=== PATIENT | male | born 1945 | race Caucasian/White ===

== ENCOUNTER → 2017-10-26 | Outpatient (CLI) | payer MEDICARE ==
[~2017-10-26] MED LIST: BISHYD10 PO; Coumadin PO; DIGO.25 PO; FURO40 PO; GLYB5 PO; INSN100I SC; INSR10I SC; LISI20 PO; LISINOPRIL PO; LOVA40 PO; TERAZOSIN PO; WARF10 PO; WARF5 PO; WARF7.5 PO
[2017-10-27 13:53] LABS: Stool Occult Bld Immuno 1 Negative (NEGATIVE)
== END | disposition home or self-care (01) ==
LOC: LAB EV 10:40
PROVIDERS: Physician Assistant
DX: Z12.11 Encounter for screening for malignant neoplasm of colon (principal)
CPT/HCPCS: G0328

== ENCOUNTER 2018-12-16 14:33 | Day surgery (SDC) | payer MEDICARE ==
[~2018-12-16] VITALS: Ht 180.3 cm; Wt 100.2 kg
[~2018-12-16 14:33] MED LIST changes: +Bisoprolol Fuma10 MG; +HYDCHL12.5; +METF500
[2018-12-16] MEDS ORDERED: POTCHL10ER PO (15:28)
== END 2018-12-16 17:35 | disposition home or self-care (01) ==
LOC: ORSCSDS 14:33
PROVIDERS: Orthopaedic Surgery
PROC: 01N50ZZ Release Median Nerve, Open Approach (ICD-10-PCS; principal; 2018-12-16 15:55)
DX: G56.02 Carpal tunnel syndrome, left upper limb (principal); E11.9 Type 2 diabetes mellitus without complications; I48.91 Unspecified atrial fibrillation; E78.5 Hyperlipidemia, unspecified; I50.9 Heart failure, unspecified; Z79.01 Long term (current) use of anticoagulants; Z79.84 Long term (current) use of oral hypoglycemic drugs; Z79.899 Other long term (current) drug therapy; F17.210 Nicotine dependence, cigarettes, uncomplicated
CPT/HCPCS: 82947; J0360; J0690; J2250; J3010; J7120

== ENCOUNTER 2019-10-08 19:26 | Observation (INO) | payer MEDICARE ==
[~2019-10-08] VITALS: Ht 180.3 cm; Wt 97.0 kg
[~2019-10-08 19:26] MED LIST changes: -HUMULIN N100 UNIT/2 SC; -INSDET100 SC; -LEVFLO500 PO
[2019-10-08] MEDS ORDERED: INSDET100 SC (20:41)
[2019-10-09 05:41] LABS: Hematocrit 35.3 % (37.0-53.0); Hemoglobin 11.8 g/dL (13.5-17.5); Mean Corpuscular HGB 31.1 pg (26.0-34.0); Mean Corpuscular HGB Conc 33.4 g/dL (31.5-36.5); Mean Corpuscular Volume 93 fL (80-100); Mean Platelet Volume 10.2 fL (9.1-12.4); Platelet Count 189 K/mm3 (150-400); RDW Coefficient Variation 13.1 % (11.7-14.2); RDW Standard Deviation 44.8 fL (35.1-46.3); Red Blood Cell Count 3.79 M/mm3 (4.30-5.90); White Blood Cell Count 5.55 K/mm3 (4.00-11.30)
[2019-10-09 06:01] LABS: Alanine Aminotransfer (ALT/SGP 9 U/L (12-78); Albumin, Blood 2.9 g/dL (3.4-5.0); Albumin/Globulin Ratio 0.6 (0.8-1.8); Alk Phos 47 U/L (50-136); Anion Gap 5 mmol/L (6-16); Aspartate Aminotrans (AST/SGOT 14 U/L (12-37); Bilirubin, Total 0.6 mg/dL (0.1-1.0); Blood Urea Nitrogen 13 mg/dL (8-24); Bun/Creatinine Ratio 15.6 (12.0-20.0); CO2, Blood 28 mmol/L (21-32); Calcium, Blood 8.6 mg/dL (8.5-10.1); Chloride, Blood 102 mmol/L (98-108); Creatinine, Blood 0.83 mg/dL (0.60-1.20); Globulin, Blood 4.7 g/dL (2.2-4.0); Glomerular Filtration Rate >60 (60-); Glucose, Blood 76 mg/dL (70-99); Potassium, Blood 3.5 mmol/L (3.5-5.5); Sodium, Blood 135 mmol/L (136-145); Total Protein, Blood 7.6 g/dL (6.4-8.2)
[2019-10-09 06:28] LABS: Digoxin (Lanoxin) 0.97 ug/mL (0.80-2.00)
[2019-10-09 08:47] LABS: International Normalized Ratio 1.88; Prothrombin Time Results 19.4 Sec (9.7-11.5)
[2019-10-09 11:53] LABS: Source, Urine Clean Catch
[2019-10-09 11:56] LABS: Bilirubin, Urine Neg (Neg); Blood, Urine 1+ (Neg); Glucose Qualitative, Urine Neg (Neg); Ketones, Urine Neg (Neg); Leukocyte Esterase, Urine Neg (Neg); Nitrite, Urine Neg (Neg); Protein, Urine Neg (Neg); Urobilinogen, Urine NORM (Normal)
[2019-10-09 12:01] LABS: Appearance, Urine Clear (Clear); Color, Urine Yellow (P-Yellow)
[2019-10-09 12:02] LABS: Bacteria Rare /hpf; Squamous Epithelial Cells Not Seen /hpf (Few); White Blood Cells, Urine 0-2 /hpf (0-5)
[2019-10-09 12:03] LABS: Adenovirus Not Detected (NOT DETECT); Bordetella pertussis Not Detected (NOT DETECT); Chlamydophila pneumoniae Not Detected (NOT DETECT); Coronavirus 229E Not Detected (NOT DETECT); Coronavirus HKU1 Not Detected (NOT DETECT); Coronavirus NL63 Not Detected (NOT DETECT); Coronavirus OC43 Not Detected (NOT DETECT); Human Metapneumovirus Not Detected (NOT DETECT); Human Rhinovirus/Enterovirus Not Detected (NOT DETECT); Influenza A/2009-H1 Not Detected (NOT DETECT); Influenza A/H1 Not Detected (NOT DETECT); Influenza A/H3 Not Detected (NOT DETECT); Influenza B Not Detected (NOT DETECT); Mycoplasma pneumoniae Not Detected (NOT DETECT); Parainfluenza Virus 1 Not Detected (NOT DETECT); Parainfluenza Virus 2 Not Detected (NOT DETECT); Parainfluenza Virus 3 Not Detected (NOT DETECT); Parainfluenza Virus 4 Not Detected (NOT DETECT); Respiratory Syncytial Virus Not Detected (NOT DETECT)
--- NOTE | 2019-10-09 17:33 | NUR ---
SUMMARY PT ADMITTED FROM THE ER FOR FEVER, PT IS ALERT AND ORIENTED, ABLE TO TRANSFER SELF FROM THE GURNEY TO THE BED, PT UP TO THE BATHROOM WITH STANDBY ASSIST, PT HAS BEEN AFEBRILE SINCE ADMIT, SPOUSE HAS BEEN IN TO VISIT SEVERAL TIMES, NO COMPLAINTS, WILL CONT TO MONITOR
--- NOTE | 2019-10-10 01:14 | NUR ---
LATE ENTRY FPR 10/10/19 0015: REPORT WAS RECIEVED FROM ROSALIND TILLEY RN AND ASSUMED CARE OF PATIENT. PATIENT IS A&OX4, RELUCTANT TO USE CALL [facility] FOR ASSIST OOB TO BATHROOM. PATIENT IS REPORIENTED TO CALL [facility], BED ALARM IS ON FOR SAFETY.
--- NOTE | 2019-10-10 05:16 | NUR ---
SHIFT SUMMARY: PATIENT IS A&OX4, UP TO THE BATHROOM TO VOID WITH STAND BY ASSIST OF ONE. PATIENT IS NOT COMPLIANT WITH CALLING FOR ASSIST TO THE BATHROOM, BED ALARM IS ON FOR SAFETY. NO COMPLAINTS OF PAIN OR DYSPNEA.
[2019-10-10 06:09] LABS: International Normalized Ratio 2.25
--- NOTE | 2019-10-10 17:26 | NUR ---
SUMMARY PT SITTING UP IN BED VISITING WITH HIS SPOUSE, PT HAS BEEN ABLE TO GET UP AND WALK IN THE HALLS WITH MIN ASSIST, PT HAS BEEN INDEPENDENT IN THE ROOM, VSS, NO ACUTE CHANGES, WILL CONT TO MONITOR
--- NOTE | 2019-10-11 04:31 | NUR ---
SHIFT SUMMARY PT HAS HAD PERIODS OF CONFUSION DURING SHIFT, AT SHIFT START PATIENT WAS FOUND IN HALLWAY AND STATED HE WAS "TRYING TO FIND MY WAY BACK TO BED FROM THE BATHROOM", ALSO WONDERED OUT TO RUEDA DURING THE NIGHT ASKING "HOW MUCH A NIGHT ARE THE ROOMS HERE?" AND ASKED WHO HAD BEEN SCREAMING AND ASKED STAFF TO LET THEM KNOW HE HAS A GUN. PT IS A&O DURING OTHER INTERACTIONS W/HIM, CONTINUES TO GET UP TO URINATE FREQUENTLY, DENIES PAIN, APPEARS TO BE SLEEPING AT THIS TIME, CALL LIGHT IN REACH, BED ALARM ON, WILL CONT TO MONITOR UNTIL REPORT GIVEN TO DAY RN.
[2019-10-11 06:39] LABS: BASOPHILS ABSOLUTE AUTO 0.07 K/mm3 (0.00-0.23); BASOPHILS PERCENT AUTO 2 % (0-2); EOSINOPHILS ABSOLUTE AUTO 0.25 K/mm3 (0.00-0.68); EOSINOPHILS PERCENT AUTO 6 % (0-6); Hematocrit 35.2 % (37.0-53.0); Hemoglobin 11.8 g/dL (13.5-17.5); IMMATURE GRAN ABSOLUTE AUTO 0.01 K/mm3 (0.00-0.10); IMMATURE GRAN PERCENT AUTO 0 % (0-1); LYMPHOCYTES ABSOLUTE AUTO 0.32 K/mm3 (0.84-5.20); LYMPHOCYTES PERCENT AUTO 8 % (21-46); MONOCYTES ABSOLUTE AUTO 0.59 K/mm3 (0.16-1.47); MONOCYTES PERCENT AUTO 14 % (4-13); Mean Corpuscular HGB 31.2 pg (26.0-34.0); Mean Corpuscular HGB Conc 33.5 g/dL (31.5-36.5); Mean Corpuscular Volume 93 fL (80-100); Mean Platelet Volume 10.5 fL (9.1-12.4); NEUTROPHILS ABSOLUTE AUTO 2.89 K/mm3 (1.96-9.15); NEUTROPHILS PERCENT AUTO 70 % (41-73); Platelet Count 191 K/mm3 (150-400); RDW Coefficient Variation 12.9 % (11.7-14.2); RDW Standard Deviation 43.8 fL (35.1-46.3); Red Blood Cell Count 3.78 M/mm3 (4.30-5.90); White Blood Cell Count 4.13 K/mm3 (4.00-11.30)
[2019-10-11 06:50] LABS: International Normalized Ratio 2.51; Prothrombin Time Results 25.5 Sec (9.7-11.5)
[2019-10-11 07:05] LABS: Alanine Aminotransfer (ALT/SGP 12 U/L (12-78); Albumin, Blood 2.6 g/dL (3.4-5.0); Albumin/Globulin Ratio 0.5 (0.8-1.8); Alk Phos 51 U/L (50-136); Anion Gap 5 mmol/L (6-16); Aspartate Aminotrans (AST/SGOT 16 U/L (12-37); Bilirubin, Total 0.6 mg/dL (0.1-1.0); Blood Urea Nitrogen 14 mg/dL (8-24); Bun/Creatinine Ratio 17.7 (12.0-20.0); CO2, Blood 30 mmol/L (21-32); Calcium, Blood 8.7 mg/dL (8.5-10.1); Chloride, Blood 103 mmol/L (98-108); Creatinine, Blood 0.79 mg/dL (0.60-1.20); Globulin, Blood 5.1 g/dL (2.2-4.0); Glomerular Filtration Rate >60 (60-); Glucose, Blood 106 mg/dL (70-99); Magnesium, Blood 2.3 mg/dL (1.6-2.4); Potassium, Blood 3.4 mmol/L (3.5-5.5); Sodium, Blood 138 mmol/L (136-145); Total Protein, Blood 7.7 g/dL (6.4-8.2)
[2019-10-11] MEDS ORDERED: HUMULIN N100 UNIT/2 SC (13:45)
--- NOTE | 2019-10-11 13:49 | NUR ---
REVIEW D'C W/PATIENT AND FAMILY. AWARE TO POULTRY HUSBANDRY WORKER RX AT [facility]. AWARE MAY CALL ABOUT LAB CULTURES IF ANY CONCERNS. AWARE NEEDS TO F/U. ANSWER ALL QUESTIONS. IN W/C TO POV
[2019-10-11] MEDS ORDERED: LEVFLO500 PO (13:50)
--- NOTE | 2019-10-11 14:21 | NUR ---
PATIENT AWARE TO ADJUST LONG ACTING INSULIN HE HAS DONE IN PAST. FOR EXAMPLE, IF NOT EATTING AND IF BLOOD SUGAR IS LOW TO TAKE LESS. IN W/C TO POV W/S.O. DRIVING
--- NOTE | 2019-10-11 15:17 | NUR ---
PER HE WANTS PATIENT TO BE ON SAME MEDS HE WAS ON AT HOME. HAD 3 PHONE CALLS FROM PHARMACY ABOUT MEDS. CALLED PATIENT , KAM, AND HE HAS ALL MEDS EXCEPT ANTIBIOTIC, LEVOQUIN.HE ALREADY HAS, INSULIN, LOVASTATIN AND HYTRIN. [facility] CALLED AND ADVISED JUST FILL LEVOQUIN
== END 2019-10-11 14:10 | disposition home or self-care (01) ==
LOC: ER 19:26 → ERHOLD 19:27 → MEDS 19:27 → ERHOLD 19:27 → MEDS 10-09 09:59
PROVIDERS: Internal Medicine Gastroenterology; Pharmacist; ADMIT Internal Medicine
DX: R50.9 Fever, unspecified (principal); C88.0 Waldenstrom macroglobulinemia; I11.0 Hypertensive heart disease with heart failure; E11.40 Type 2 diabetes mellitus with diabetic neuropathy, unspecified; I48.91 Unspecified atrial fibrillation; I50.9 Heart failure, unspecified; E78.5 Hyperlipidemia, unspecified; E78.00 Pure hypercholesterolemia, unspecified; N40.0 Benign prostatic hyperplasia without lower urinary tract symptoms; F17.210 Nicotine dependence, cigarettes, uncomplicated; Z79.01 Long term (current) use of anticoagulants; Z79.2 Long term (current) use of antibiotics; Z79.4 Long term (current) use of insulin; Z79.899 Other long term (current) drug therapy; Z98.1 Arthrodesis status
CPT/HCPCS: 0099U; 36415; 80053; 80162; 81001; 82947; 83605; 83735; 84145; 85025; 85027; 85610; 93306; 96361; 96365; 96366; 96367; 96372-59; 99285-25; A9270; A9270-GY; J0696; J1650; J1956; J7030

== ENCOUNTER → 2019-10-08 | Outpatient (CLI) | payer MEDICARE ==
[~2019-10-08] MED LIST changes: -Bisoprolol Fuma10 MG; +Bisoprolol Fuma10 MG PO; -DIGO.25 PO; +DIGOX250 MCG PO; +HUMULIN N100 UNIT/2 SC; -HYDCHL12.5; +HYDCHL12.5 PO; +INSDET100 SC; +LEVFLO500 PO; -METF500; +METF500 PO; +POTCHL10ER PO; +TERA5 PO; -TERAZOSIN PO
[2019-10-08 18:23] LABS: Hematocrit 38.1 % (37.0-53.0); Hemoglobin 12.7 g/dL (13.5-17.5); Mean Corpuscular HGB 31.1 pg (26.0-34.0); Mean Corpuscular HGB Conc 33.3 g/dL (31.5-36.5); Platelet Count 204 K/mm3 (150-400); RDW Coefficient Variation 13.3 % (11.7-14.2); RDW Standard Deviation 45.3 fL (35.1-46.3); Red Blood Cell Count 4.09 M/mm3 (4.30-5.90); White Blood Cell Count 6.99 K/mm3 (4.00-11.30)
[2019-10-08 18:36] LABS: Alanine Aminotransfer (ALT/SGP 13 U/L (12-78); Albumin, Blood 3.1 g/dL (3.4-5.0); Albumin/Globulin Ratio 0.6 (0.8-1.8); Alk Phos 55 U/L (40-126); Anion Gap 10 mmol/L (6-16); Aspartate Aminotrans (AST/SGOT 18 U/L (12-37); Bilirubin, Total 0.5 mg/dL (0.1-1.0); Blood Urea Nitrogen 16 mg/dL (8-24); CO2, Blood 27 mmol/L (21-32); Calcium, Blood 8.7 mg/dL (8.5-10.1); Chloride, Blood 97 mmol/L (98-108); Creatinine, Blood 1.07 mg/dL (0.60-1.20); Globulin, Blood 5.6 g/dL (2.2-4.0); Glomerular Filtration Rate >60 (60-); Glucose, Blood 181 mg/dL (70-99); Potassium, Blood 3.9 mmol/L (3.5-5.5); Sodium, Blood 134 mmol/L (136-145); Total Protein, Blood 8.7 g/dL (6.4-8.2)
[2019-10-08 18:42] LABS: Mean Corpuscular Volume 93 fL (80-100)
[2019-10-08 19:08] LABS: BAND PERCENT MAN 7 % (0-8); BASOPHILS PERCENT MAN 3 % (0-2); EOSINOPHILS PERCENT MAN 0 % (0-6); LYMPHOCYTES ABSOLUTE MAN 0.13 K/mm3 (0.84-5.20); LYMPHOCYTES PERCENT MAN 2 % (21-46); METAMYELOCYTE ABSOLUTE MAN 0.06 K/mm3 (0.00-0.00); METAMYELOCYTE PERCENT MAN 1 % (0-0); MONOCYTES ABSOLUTE MAN 0.34 K/mm3 (0.16-1.47); MONOCYTES PERCENT MAN 5 % (4-13); NEUTROPHILS ABSOLUTE MAN 6.22 K/mm3 (1.96-9.15); SEG NEUTROPHILS PERCENT MAN 82 % (41-73); TOTAL CELLS COUNTED 100
== END | disposition home or self-care (01) ==
LOC: LAB SHORT 18:18 → LAB EV 18:18
PROVIDERS: Physician Assistant
DX: R50.9 Fever, unspecified (principal)
CPT/HCPCS: 80053; 85025

== ENCOUNTER 2019-11-03 06:26 | Inpatient (IN) | payer MEDICARE ==
[~2019-11-03] VITALS: Ht 185.4 cm; Wt 88.0 kg
[~2019-11-03 06:26] MED LIST changes: +HUMULIN N100 UNIT/2 SC; +INSDET100 SC; +LEVFLO500 PO
[2019-11-03 06:53] LABS: BASOPHILS ABSOLUTE AUTO 0.03 K/mm3 (0.00-0.23); BASOPHILS PERCENT AUTO 0 % (0-2); EOSINOPHILS PERCENT AUTO 7 % (0-6); Hematocrit 40.3 % (37.0-53.0); Hemoglobin 13.1 g/dL (13.5-17.5); IMMATURE GRAN ABSOLUTE AUTO 0.03 K/mm3 (0.00-0.10); IMMATURE GRAN PERCENT AUTO 0 % (0-1); LYMPHOCYTES ABSOLUTE AUTO 0.17 K/mm3 (0.84-5.20); LYMPHOCYTES PERCENT AUTO 2 % (21-46); MONOCYTES ABSOLUTE AUTO 0.54 K/mm3 (0.16-1.47); MONOCYTES PERCENT AUTO 8 % (4-13); Mean Corpuscular HGB 30.3 pg (26.0-34.0); Mean Corpuscular HGB Conc 32.5 g/dL (31.5-36.5); Mean Corpuscular Volume 93 fL (80-100); Mean Platelet Volume 9.5 fL (9.1-12.4); NEUTROPHILS ABSOLUTE AUTO 5.94 K/mm3 (1.96-9.15); NEUTROPHILS PERCENT AUTO 82 % (41-73); Platelet Count 215 K/mm3 (150-400); RDW Coefficient Variation 14.2 % (11.7-14.2); RDW Standard Deviation 47.8 fL (35.1-46.3); Red Blood Cell Count 4.33 M/mm3 (4.30-5.90); White Blood Cell Count 7.21 K/mm3 (4.00-11.30)
[2019-11-03 07:08] LABS: Albumin/Globulin Ratio 0.7 (0.8-1.8); Bilirubin, Total 0.3 mg/dL (0.1-1.0); Bun/Creatinine Ratio 17.9 (12.0-20.0); Calcium, Blood 8.8 mg/dL (8.5-10.1); Creatinine, Blood 2.51 mg/dL (0.60-1.20); Globulin, Blood 4.1 g/dL (2.2-4.0); Potassium, Blood 4.1 mmol/L (3.5-5.5); Total Protein, Blood 7.1 g/dL (6.4-8.2)
[2019-11-03 07:11] LABS: Prothrombin Time Results 70.6 Sec (9.7-11.5)
[2019-11-03 07:14] LABS: International Normalized Ratio 7.39
[2019-11-03 13:48] LABS: Adenovirus F 40/41 Not Detected (NOT DETECT); Astrovirus Not Detected (NOT DETECT); Campylobacter Sp Not Detected (NOT DETECT); Cryptosporidium Not Detected (NOT DETECT); Cyclospora Cayetanensis Not Detected (NOT DETECT); E. Coli O157 Not Detected (NOT DETECT); Entamoeba Histolytica Not Detected (NOT DETECT); Enteroaggregative E. coli-EAEC Not Detected (NOT DETECT); Enteropathogenic E. coli-EPEC Not Detected (NOT DETECT); Enterotoxigenic E. coli-ETEC Not Detected (NOT DETECT); Giardia Lamblia Not Detected (NOT DETECT); Norovirus GI/GII Not Detected (NOT DETECT); Plesiomonas Shigelloides Not Detected (NOT DETECT); Rotavirus A Not Detected (NOT DETECT); Salmonella Sp Not Detected (NOT DETECT); Sapovirus Not Detected (NOT DETECT); Shiga Toxin-prod E. coli-STEC Not Detected (NOT DETECT); Shigella/Enteroin E. coli-EIEC Not Detected (NOT DETECT); Vibrio Cholerae Not Detected (NOT DETECT); Vibrio Sp Not Detected (NOT DETECT); Yersinia Enterocolitica Not Detected (NOT DETECT)
[2019-11-03] MEDS ORDERED: CEPH500 PO ×2 (17:15→17:19)
[2019-11-03] MEDS ORDERED: Sulfamethoxazo1 EAC4 PO (17:17)
[2019-11-04 05:29] LABS: BASOPHILS ABSOLUTE AUTO 0.02 K/mm3 (0.00-0.23); BASOPHILS PERCENT AUTO 1 % (0-2); EOSINOPHILS ABSOLUTE AUTO 0.31 K/mm3 (0.00-0.68); EOSINOPHILS PERCENT AUTO 8 % (0-6); Hematocrit 36.5 % (37.0-53.0); Hemoglobin 12.1 g/dL (13.5-17.5); IMMATURE GRAN ABSOLUTE AUTO 0.01 K/mm3 (0.00-0.10); IMMATURE GRAN PERCENT AUTO 0 % (0-1); LYMPHOCYTES ABSOLUTE AUTO 0.11 K/mm3 (0.84-5.20); LYMPHOCYTES PERCENT AUTO 3 % (21-46); MONOCYTES ABSOLUTE AUTO 0.48 K/mm3 (0.16-1.47); MONOCYTES PERCENT AUTO 13 % (4-13); Mean Corpuscular HGB 30.6 pg (26.0-34.0); Mean Corpuscular HGB Conc 33.2 g/dL (31.5-36.5); Mean Corpuscular Volume 92 fL (80-100); Mean Platelet Volume 10.1 fL (9.1-12.4); NEUTROPHILS ABSOLUTE AUTO 2.76 K/mm3 (1.96-9.15); NEUTROPHILS PERCENT AUTO 75 % (41-73); Platelet Count 218 K/mm3 (150-400); RDW Standard Deviation 47.3 fL (35.1-46.3); Red Blood Cell Count 3.95 M/mm3 (4.30-5.90); White Blood Cell Count 3.69 K/mm3 (4.00-11.30)
[2019-11-04 06:04] LABS: Albumin, Blood 2.5 g/dL (3.4-5.0); Albumin/Globulin Ratio 0.7 (0.8-1.8); Bilirubin, Total 0.4 mg/dL (0.1-1.0); Bun/Creatinine Ratio 24.6 (12.0-20.0); Calcium, Blood 7.9 mg/dL (8.5-10.1); Creatinine, Blood 1.26 mg/dL (0.60-1.20); Globulin, Blood 3.6 g/dL (2.2-4.0); Potassium, Blood 4.1 mmol/L (3.5-5.5); Total Protein, Blood 6.1 g/dL (6.4-8.2)
[2019-11-04 11:08] LABS: Prothrombin Time Results >90.0 Sec (9.7-11.5)
[2019-11-04 11:11] LABS: International Normalized Ratio No Calc
[2019-11-05 05:14] LABS: BASOPHILS ABSOLUTE AUTO 0.01 K/mm3 (0.00-0.23); BASOPHILS PERCENT AUTO 0 % (0-2); EOSINOPHILS ABSOLUTE AUTO 0.33 K/mm3 (0.00-0.68); EOSINOPHILS PERCENT AUTO 8 % (0-6); Hematocrit 37.9 % (37.0-53.0); Hemoglobin 12.6 g/dL (13.5-17.5); IMMATURE GRAN ABSOLUTE AUTO 0.01 K/mm3 (0.00-0.10); IMMATURE GRAN PERCENT AUTO 0 % (0-1); LYMPHOCYTES ABSOLUTE AUTO 0.16 K/mm3 (0.84-5.20); LYMPHOCYTES PERCENT AUTO 4 % (21-46); MONOCYTES ABSOLUTE AUTO 0.49 K/mm3 (0.16-1.47); MONOCYTES PERCENT AUTO 12 % (4-13); Mean Corpuscular HGB 30.4 pg (26.0-34.0); Mean Corpuscular HGB Conc 33.2 g/dL (31.5-36.5); Mean Corpuscular Volume 92 fL (80-100); Mean Platelet Volume 9.4 fL (9.1-12.4); NEUTROPHILS ABSOLUTE AUTO 3.06 K/mm3 (1.96-9.15); NEUTROPHILS PERCENT AUTO 76 % (41-73); Platelet Count 218 K/mm3 (150-400); RDW Coefficient Variation 13.9 % (11.7-14.2); RDW Standard Deviation 46.6 fL (35.1-46.3); Red Blood Cell Count 4.14 M/mm3 (4.30-5.90); White Blood Cell Count 4.06 K/mm3 (4.00-11.30)
[2019-11-05 05:53] LABS: Anion Gap 8 mmol/L (6-16); Blood Urea Nitrogen 15 mg/dL (8-24); Bun/Creatinine Ratio 18.2 (12.0-20.0); CO2, Blood 24 mmol/L (21-32); Calcium, Blood 8.3 mg/dL (8.5-10.1); Chloride, Blood 110 mmol/L (98-108); Creatinine, Blood 0.82 mg/dL (0.60-1.20); Glomerular Filtration Rate >60 (60-); Potassium, Blood 3.4 mmol/L (3.5-5.5); Sodium, Blood 142 mmol/L (136-145)
[2019-11-05 05:55] LABS: Glucose, Blood 41 mg/dL (70-99)
[2019-11-05 10:29] LABS: International Normalized Ratio 1.37; Prothrombin Time Results 14.4 Sec (9.7-11.5)
[2019-11-05] MEDS ORDERED: Vsl#3 Capsule1 EACH PO (13:22)
[2019-11-05] MEDS ORDERED: Lomotil Tablet1 EACH PO (13:22)
[2019-11-05] MEDS ORDERED: PRED20 PO (13:23)
== END 2019-11-05 15:18 | disposition home or self-care (01) | DRG 683 ==
LOC: ER 06:26 → MEDS 09:09 → ENPENDDIS 11-05 13:11 → MEDS 11-05 15:18
PROVIDERS: Emergency Medicine; ADMIT Family Medicine
DX: N17.9 Acute kidney failure, unspecified (principal); C83.00 Small cell B-cell lymphoma, unspecified site; L03.311 Cellulitis of abdominal wall; E86.0 Dehydration; I95.9 Hypotension, unspecified; R19.7 Diarrhea, unspecified; Z92.21 Personal history of antineoplastic chemotherapy; E11.42 Type 2 diabetes mellitus with diabetic polyneuropathy; N40.0 Benign prostatic hyperplasia without lower urinary tract symptoms; E78.5 Hyperlipidemia, unspecified; I50.9 Heart failure, unspecified; I11.0 Hypertensive heart disease with heart failure; Z87.891 Personal history of nicotine dependence; Z79.4 Long term (current) use of insulin; Z79.01 Long term (current) use of anticoagulants
CPT/HCPCS: 0097U; 36415; 80048; 80053; 82947; 83690; 85025; 85610; 85730; 93005; 93010; 96360; 96361; 99285-25; A9270; J1815; J7030; J7512

== ENCOUNTER 2020-07-12 08:43 | Observation (INO) | payer MEDICARE ==
[~2020-07-12] VITALS: Ht 185.4 cm; Wt 84.5 kg
[~2020-07-12 08:43] MED LIST changes: +ACET325 PO; +CEPH500 PO; +FUROSEMIDE20 MG PO; +GABA100 PO; +GABAPENTIN CAP 100; +HUMULIN N100 UNIT/1; +HYDCHL25 PO; +Lomotil Tablet1 EACH PO; +PRED20 PO; +Sulfamethoxazo1 EAC4 PO; +Vsl#3 Capsule1 EACH PO; +ZESTRIL40 M1 PO
[2020-07-12] MEDS ORDERED: BACIGUENT3.5 GM LEFTEYE (09:57)
[2020-07-12] MEDS ORDERED: Cyclogyl 1% Opth2 ML LEFTEYE (09:59)
[2020-07-12] MEDS ORDERED: OCUFLOX LEFTEYE (10:00)
[2020-07-12] MEDS ORDERED: PRED FORTE5 ML LEFTEYE (10:00)
[2020-07-12 10:22] LABS: Hematocrit 37.6 % (37.0-53.0); Hemoglobin 11.9 g/dL (13.5-17.5); Mean Corpuscular HGB 30.2 pg (26.0-34.0); Mean Corpuscular HGB Conc 31.6 g/dL (31.5-36.5); Mean Corpuscular Volume 95 fL (80-100); Platelet Count 157 K/mm3 (150-400); RDW Coefficient Variation 15.5 % (11.7-14.2); RDW Standard Deviation 54.6 fL (35.1-46.3); Red Blood Cell Count 3.94 M/mm3 (4.30-5.90); White Blood Cell Count 10.46 K/mm3 (4.00-11.30)
[2020-07-12 10:33] LABS: International Normalized Ratio 1.76; Prothrombin Time Results 18.2 Sec (9.7-11.5)
[2020-07-12 10:45] LABS: Alanine Aminotransfer (ALT/SGP 38 U/L (12-78); Albumin, Blood 3.5 g/dL (3.4-5.0); Albumin/Globulin Ratio 1.1 (0.8-1.8); Alk Phos 67 U/L (50-136); Anion Gap 6 mmol/L (6-16); Aspartate Aminotrans (AST/SGOT 82 U/L (12-37); Bilirubin, Total 1.4 mg/dL (0.1-1.0); Blood Urea Nitrogen 26 mg/dL (8-24); Bun/Creatinine Ratio 19.5 (12.0-20.0); CO2, Blood 30 mmol/L (21-32); Calcium, Blood 9.4 mg/dL (8.5-10.1); Chloride, Blood 106 mmol/L (98-108); Creatinine, Blood 1.33 mg/dL (0.60-1.20); Ethanol (Alcohol), Blood, Med <3 mg/dL; Globulin, Blood 3.2 g/dL (2.2-4.0); Glomerular Filtration Rate 56 (60-); Glucose, Blood 90 mg/dL (70-99); Magnesium, Blood 2.3 mg/dL (1.6-2.4); Potassium, Blood 3.5 mmol/L (3.5-5.5); Sodium, Blood 142 mmol/L (136-145); Total Protein, Blood 6.7 g/dL (6.4-8.2)
[2020-07-12 11:01] LABS: Digoxin (Lanoxin) 1.97 ug/mL (0.80-2.00)
[2020-07-12 11:29] LABS: BAND PERCENT MAN 18 % (0-8); BASOPHILS PERCENT MAN 0 % (0-2); EOSINOPHILS PERCENT MAN 2 % (0-6); LYMPHOCYTES PERCENT MAN 2 % (21-46); METAMYELOCYTE ABSOLUTE MAN 0.41 K/mm3 (0.00-0.00); METAMYELOCYTE PERCENT MAN 4 % (0-0); MONOCYTES ABSOLUTE MAN 1.25 K/mm3 (0.16-1.47); MONOCYTES PERCENT MAN 12 % (4-13); NEUTROPHILS ABSOLUTE MAN 8.36 K/mm3 (1.96-9.15); SEG NEUTROPHILS PERCENT MAN 62 % (41-73); TOTAL CELLS COUNTED 100
[2020-07-12 11:32] LABS: Source, Urine Catheter
[2020-07-12 11:44] LABS: Bilirubin, Urine Neg (Neg); Blood, Urine 3+ (Neg); Glucose Qualitative, Urine Neg (Neg); Ketones, Urine Neg (Neg); Leukocyte Esterase, Urine 1+ (Neg); Nitrite, Urine Neg (Neg); Protein, Urine 3+ (Neg); Urobilinogen, Urine 1+ (Normal)
[2020-07-12 11:55] LABS: Appearance, Urine Clear (Clear); Color, Urine Yellow (P-Yellow)
[2020-07-12 11:56] LABS: Amorphous Mod (0-Heavy); Bacteria Rare /hpf; Red Blood Cells, Urine 0-2 /hpf (0-2); Squamous Epithelial Cells Rare /hpf (Few)
[2020-07-12] MEDS ORDERED: HUMULIN N100 UNIT/6 SC (12:22)
[2020-07-12] MEDS ORDERED: LOVASTATIN40 MG PO (12:23)
[2020-07-12] MEDS ORDERED: KLOR-CON 1010 MEQ PO (12:23)
[2020-07-12] MEDS ORDERED: HUMULIN R100 UNIT/2 SC (12:31)
[2020-07-12 13:58] LABS: Influenza A, PCR Negative (NEGATIVE); Influenza B, PCR Negative (NEGATIVE); Resp Syncytial Virus, PCR Negative (NEGATIVE); SARS-Cov-2 (COVID-19) PCR, MMC Negative (NEGATIVE)
[2020-07-12] MEDS ORDERED: GABA300 PO (17:53)
--- NOTE | 2020-07-12 18:20 | NUR ---
1530 RECEIVED PT TO RM 346 VIA GURNEY FROM ER. PT ADMITTED FOR INCREASED WEAKNESS AND CONFUSION. RECEIVED REPORT FROM [facility], PT HAVING RECENT FALL 1 WEEK AGO AND OBTAINED EYE INJURY, FOR WHICH HE HAD SX ON UP AT [facility]. PT NOW HAS PATCH ON L EYE RECEIVING MULTIPLE EYE DROPS THRU OUT THE DAY. PT ALSO ADMITTED FOR ENCEPHALOPATHY AND REBECCA. PT SLEEPY EALIER IN DAY, BUT WOKE WITH INCREASED CONFUSION AND AGITATION. PT SOMEWHAT AGITATED WHEN COMING TO . DID NOT LIKE TO BE REPOSITIONED OR CHECKED FOR INCONTINENCE. PT HAS BEEN RESTING QUIETLY SINCE BEING SETTLED. WAS ABLE TO WAKE AND TOOK PM MEDS. CAME IN TONIGHT TO ASSIST WITH EYE DROPS AND COMPLETE MEDICATION LIST. IVF'S INFUSING PER EMAR. IV ROCEPHIN GIVEN PER EMAR, [facility] HENDRICKS WAS NOT ABLE TO OBTAIN WHILE IN ER. PT WITH HX OF IDDM, A-FIB ON COUMADIN, BPH, HTN, CHF, AND HLD. PT LIVES AT HOME WITH . HAS BEEN VERY PLEASANT AND HELPFUL. PT MEDICATED FOR C/O PAIN TO BACK. BED ALARM ON FOR SAFETY. CALL LT IN REACH.
--- NOTE | 2020-07-13 04:19 | NUR ---
SHIFT SUMMARY ALERT YET CONFUSED. FORGETFUL. RE-DIRECTABLE. ABLE TO MAKE NEEDS KNOWN. COOPERATIVE. ANSWERS QUESTIONS TO BEST OF HIS OWN KNOWLEDGE. NO C/O PAIN/DISCOMFORT, DID HOWEVER STATE SUFFERS FROM ARTHRITIS. INCONTINENT AT TIMES; ATTENDS IN PLACE WITH ROUTINE CHECKS. CONTINUES TO INFUSE NS @ 100 ML/HR WITHOUT COMPLICATIONS. TELE RUNNING AFIB /c BBB IN 70'S PER PCU VIBRATORY PILE DRIVER. NO ACUTE CHANGES NOTED AT THIS TIME. BED REMAINS IN LOWEST POSITION; ALARM ON. CALL LIGHT WITHIN REACH. WCTM. REPORT TO ONCOMING RN.
[2020-07-13 05:11] LABS: Hematocrit 32.8 % (37.0-53.0); Hemoglobin 10.4 g/dL (13.5-17.5); Mean Corpuscular HGB 30.3 pg (26.0-34.0); Mean Corpuscular HGB Conc 31.7 g/dL (31.5-36.5); Mean Corpuscular Volume 96 fL (80-100); Mean Platelet Volume 10.3 fL (9.1-12.4); Platelet Count 150 K/mm3 (150-400); RDW Coefficient Variation 15.6 % (11.7-14.2); RDW Standard Deviation 54.1 fL (35.1-46.3); Red Blood Cell Count 3.43 M/mm3 (4.30-5.90); White Blood Cell Count 10.13 K/mm3 (4.00-11.30)
[2020-07-13 05:24] LABS: International Normalized Ratio 2.52; Prothrombin Time Results 25.6 Sec (9.7-11.5)
[2020-07-13 05:33] LABS: Anion Gap 5 mmol/L (6-16); Blood Urea Nitrogen 25 mg/dL (8-24); Bun/Creatinine Ratio 21.9 (12.0-20.0); CO2, Blood 28 mmol/L (21-32); Calcium, Blood 8.8 mg/dL (8.5-10.1); Chloride, Blood 106 mmol/L (98-108); Creatinine, Blood 1.14 mg/dL (0.60-1.20); Glomerular Filtration Rate >60 (60-); Glucose, Blood 95 mg/dL (70-99); Potassium, Blood 3.9 mmol/L (3.5-5.5); Sodium, Blood 139 mmol/L (136-145)
[2020-07-13 05:54] LABS: BAND PERCENT MAN 19 % (0-8); BASOPHILS PERCENT MAN 1 % (0-2); EOSINOPHILS PERCENT MAN 0 % (0-6); LYMPHOCYTES PERCENT MAN 2 % (21-46); METAMYELOCYTE PERCENT MAN 3 % (0-0); MONOCYTES ABSOLUTE MAN 1.21 K/mm3 (0.16-1.47); MONOCYTES PERCENT MAN 12 % (4-13); SEG NEUTROPHILS PERCENT MAN 63 % (41-73); TOTAL CELLS COUNTED 100
--- NOTE | 2020-07-13 13:09 | NUR ---
Patient is lying in bed and alert. Patient is confused at times and gets his words mixed up but overall he can commuicate what is important to him if given enough time and coaching. Patient has a strong Taoism patricia, desire to live and need to have his , Emily, present. Patient is amenable to prayer so I gladly provide prayer. Patient's response to the prayer is, "That was perfect." Patient feels alone and afraid (insecure about his surroundings). I normalize patient's experience, reinforce helpful attitudes and provide pastoral personnel counselor and prayer. Patient responds well and shows signs of reduced anxiety and increased peace. I will continue to remain available to patient and family.
--- NOTE | 2020-07-13 19:29 | NUR ---
SHIFT SUMMARY PT AWAKE ALL DAY TODAY, AGITATED AND CONFUSED. PT DOES NOT KNOW WHERE HE IS OR WHY, AND IS WANTING TO GO HOME. DR NELSON IN TO SEE PT THIS AM. POSSIBLE D/C TOMORROW. DR NELSON TO CALL PT'S . IN TO VISIT THIS AFTERNOON. PT CALMED DOWN AND TOOK A SHORT NAP. PT BECOME RESTLESS AGAIN AFTER LEFT, NOT REMEMBERING THAT SHE HAD COME IN. PT PULLED OUT IV AND PULLED OFF TELE LEADS. PT REMAINS INCONTINENT OF URINE; VOIDS HEAVILY. PT ABLE TO EAT AND DRINK WELL. PT ALSO REMOVED L EYE PATCH. AWARE. BED ALARM ON FOR SAFETY. CALL LT IN REACH.
--- NOTE | 2020-07-13 21:20 | NUR ---
PATIENT PULLING TELEMETRY OFF AND GOWN X THREE. PATIENT AXO X ONE AND TRYING TO GET OUT OF BED. BED ALARM ACTIVATED.
--- NOTE | 2020-07-14 01:46 | NUR ---
PATIENT HAVING AUDITORY HALLUCINATIONS AT THIS TIME.
--- NOTE | 2020-07-14 03:07 | NUR ---
SHIFT SUMMARY PATIENT AGITATED AND CONFUSED. AXO TO SELF AND BEDREST. PULLED IV ON DAY SHIFT AND PULLED TELEMETRY, GOWN AND EYE PATCH OFF MULTIPLE TIMES. TOOK MEDICATION CRUSHED IN APPLE SAUCE. CBG 206. 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 OXYCODONE 5 MG FOR ARTHRITIS AND TO HELP SLEEP WITH REDUCED PAIN. EYES DROPS X THREE GIVEN PER EMAR. PATIENT RESTLESS T/O SHIFT AND TRIES BED EXITS ATTEMPTS REPORTING WANTS TO LEAVE. AUDITORY HALLUCINATIONS MID SHIFT. CALL LIGHT IN REACH. BED IN LOWEST POSITION AND ALARM ACTIVATED. WILL CONTINUE TO MONITOR UNTIL DAY SHIFT NURSE ASSUMES CARE.
[2020-07-14 05:19] LABS: International Normalized Ratio 3.74; Prothrombin Time Results 37.1 Sec (9.7-11.5)
--- NOTE | 2020-07-14 17:56 | NUR ---
PT AOX1 AND VERY CONFUSED. PT HAS BEEN IN BED ALL DAY AND IS A TWO PERSON TURN TO CHANGE. PT IS INCONTINENT OF URINE, BUT WAS ABLE TO USE COMODE TODAY WITH PHYSICAL THERAPY AND HAD A BM. PT IS COOPERATIVE, BUT DOES NOT ALWAYS WANT ASSITANCE OR WOULD LIKE TO LEAVE AND DANGLES LEGS OUT OF BED. BED IS IN LOWEST POSITION AND ALARM IN PLACE.
--- NOTE | 2020-07-14 21:25 | NUR ---
INCREASE CONFUSION. PATIENT BELIEVES HE IS AT A RESTAURANT AND WANTS TO TALK TO POWER SUPPLY ENGINEER. PATIET NOT ABLE TO REORIENT AT THIS TIME. CALL LIGHT IN REACH AND BED ALARM ON.
--- NOTE | 2020-07-15 01:17 | NUR ---
HAVING INCREASED CONFUSION. PULLED GOWN, COVERS, AND TELEMETRY LEADS OFF AFTER HE WAS JUST CHANGED. HANGING LEGS OFF SIDE OF BED AND ACTIVATED ALARM. PATIENT BACK INTO BED. TELEMETRY LEADS REATTACHED AND PATIENT REPOSITIONED AND COVERS BACK ON. WILL CONTINUE TO MONITOR.
--- NOTE | 2020-07-15 01:36 | NUR ---
PATIENT PULLED GOWN, TELE LEADS, AND COVERS OFF AGAIN. TALKING ABOUT WORKING ON CAR ENGINES TOMORROW. PATIENT NOT ABLE TO REORIENT AND FOLLOW DIRECTIONS AT THIS TIME.
--- NOTE | 2020-07-15 03:18 | NUR ---
SHIFT SUMMARY PATIENT HAD INCREASED CONFUSION T/O SHIFT. PULLED TELEMETRY LEADS, GOWNS, AND BLANKETS OFF X FOUR. UNABLE TO REORIENT AND FOLLOW DIRECTIONS AT THIS TIME. AXO TO SELF AND BEDREST. OXYCODONE 5 MG GIVEN FOR ARTHRITIS PAIN. DENIES SOB AND N/V. AFEBRILE. SCHEDULE EYE DROPS X THREE GIVEN PER EMAR. PIV REMAINS INTACT. DIE FORGER REPORTS A-FIB W/PVC @ 71. TAKES MEDICATION CRUSHED IN APPLE SAUCE. DOES NOT USE CALL LIGHT. BED IN LOWEST POSITION AND ALARM ACTIVATED. WILL CONTINUE TO MONITOR UNTIL DAY SHIFT NURSE ASSUMES CARE.
[2020-07-15 05:28] LABS: International Normalized Ratio 2.97; Prothrombin Time Results 29.9 Sec (9.7-11.5)
--- NOTE | 2020-07-15 16:59 | NUR ---
HE LAYED IN BED UNTIL HIS WAS HERE AND OT CAME BY. HE REFUSED TO GET OOB OR TO EAT UNTIL HIS WAS HERE. THE PLAN IS TO SEND HIM HOME TOMORROW WITH HIS . SHE HAS CAREGIVERS FOR HIM AND MEDICAL EQUIPMENT. HE IS SITTING UP IN THE CHAIR AWAITING DINNER. HIS EXTREMITIES ARE VERY STIFF BUT HE WAS ABLE TO STAND AND SIT A FEW TIMES FOR THE OT. TELE AFIB, RATE 70'S. SMALL COUMADIN DOSE TONIGHT FOR INR 2.9.
[2020-07-16 05:19] LABS: International Normalized Ratio 2.85; Prothrombin Time Results 28.7 Sec (9.7-11.5)
--- NOTE | 2020-07-16 06:49 | NUR ---
SHIFT SUMMARY PT IS 75 Y/O MALE, ADMITTED FOR ENCEPHALOPATHY. PT IS A&O X SELF ONLY, VERY PARANOID WITH STAFF AND DIFFICULT TO REDIRECT OR REORIENT. PT IS 2P MAX OUT OF BED, INCONTINENT. NO C/O PAIN, NAUSEA OR SOB. BP WAS ELEVATED, VITAL SIGNS OTHERWISE STABLE. NO OTHER ACUTE CHANGES IN PT CONDITION NOTED. WILL CONTINUE TO MONITOR AND TREAT PER EMAR UNTIL HAND OFF TO DAY SHIFT RN.
--- NOTE | 2020-07-16 15:44 | NUR ---
ROUNDED BEFORE BREAKFAST. HIGHER NORVASC DOSE GIVEN WITH AM MEDS. BP CHECKED A COUPLE HRS LATER AND IT WAS STILL HIGH BUT REASONABLE. SEE VS CHARTING. HE HAS BEEN IMPATIENT TO GO HOME. HIS IS WITH HIM CURRENTLY. DR. MARTIN CALLED HER AT HOME THIS MORNING AND SHE UNDERSTYANDS THAT HE WANTS THE BP CONTROLLED BETTER BEFORE DC. HE REMAINS VERY CONFUSED. HIS MOBILITY IS MUCH IMPROVED TODAY THOUGH.
--- NOTE | 2020-07-16 18:02 | NUR ---
HE IS BACK IN BED AFTER BEING UP IN THE CHAIR A LOT TODAY. HE ALSO AMBULATED IN THE ROOM ONCE AND WALKED IN THE RUEDA WITH THERAPY. BP IMPROVING.
--- NOTE | 2020-07-16 19:10 | NUR ---
ASSUMED CARE RECEIVED REPORT FROM ELADIO MAGANA. ASSUMED CARE OF PT. RESTING COMFORTABLY AT THIS TIME, NO S/S ACUTE DISTRESS NOTED, RESPS E/U. DENIES NEEDS. CALL LIGHT, POSSESSIONS IN REACH, BED IN LOW POSITION WITH ALARMS ON. WCTM.
--- NOTE | 2020-07-17 02:08 | NUR ---
SPOKE TO DR. DANG REGARDING PT'S INCREASED AGITATION. ORDERS RECEIVED. CONTINUE TO MONITOR.
[2020-07-17 05:03] LABS: International Normalized Ratio 2.11; Prothrombin Time Results 21.6 Sec (9.7-11.5)
[2020-07-17 05:24] LABS: Anion Gap 7 mmol/L (6-16); Blood Urea Nitrogen 14 mg/dL (8-24); Bun/Creatinine Ratio 15.8 (12.0-20.0); CO2, Blood 29 mmol/L (21-32); Chloride, Blood 102 mmol/L (98-108); Creatinine, Blood 0.89 mg/dL (0.60-1.20); Digoxin (Lanoxin) 1.12 ug/mL (0.80-2.00); Glomerular Filtration Rate >60 (60-); Glucose, Blood 103 mg/dL (70-99); Magnesium, Blood 2.4 mg/dL (1.6-2.4); Phosphorus, Blood 3.3 mg/dL (2.5-4.9); Potassium, Blood 3.4 mmol/L (3.5-5.5); Sodium, Blood 138 mmol/L (136-145)
[2020-07-17 06:17] LABS: Hematocrit 35.8 % (37.0-53.0); Hemoglobin 11.9 g/dL (13.5-17.5); Mean Corpuscular HGB 30.6 pg (26.0-34.0); Mean Corpuscular HGB Conc 33.2 g/dL (31.5-36.5); Mean Corpuscular Volume 92 fL (80-100); Mean Platelet Volume 11.3 fL (9.1-12.4); Platelet Count 221 K/mm3 (150-400); RDW Coefficient Variation 14.6 % (11.7-14.2); RDW Standard Deviation 49.2 fL (35.1-46.3); Red Blood Cell Count 3.89 M/mm3 (4.30-5.90); White Blood Cell Count 5.58 K/mm3 (4.00-11.30)
--- NOTE | 2020-07-17 06:53 | NUR ---
SHIFT SUMMARY PT AWAKE T/O MUCH OF THE NIGHT, INCREASINGLY CONFUSED, CALLING OUT FOR FAMILY MEMBERS AND ASKING TO BE TAKEN HOME BY HIS . PROVIDED REASSURANCE AND VERBAL RE-DIRECTION. SEE EMAR FOR DETAILS. VS REVIEWED, BP'S ELEVATED, MEDICATED PER EMAR, BP'S STABLE. COOPERATIVE WITH CARES. ASLEEP AT THIS TIME. CALL LIGHT, POSSESSIONS IN REACH, BED IN LOW POSITION WITH ALARMS ON. REPORT GIVEN TO DRAKE Jones RN.
[2020-07-17 06:55] LABS: BAND PERCENT MAN 25 % (0-8); BASOPHILS ABSOLUTE MAN 0.05 K/mm3 (0.00-0.23); BASOPHILS PERCENT MAN 1 % (0-2); EOSINOPHILS ABSOLUTE MAN 0.16 K/mm3 (0.00-0.68); EOSINOPHILS PERCENT MAN 3 % (0-6); LYMPHOCYTES ABSOLUTE MAN 0.22 K/mm3 (0.84-5.20); LYMPHOCYTES PERCENT MAN 4 % (21-46); METAMYELOCYTE ABSOLUTE MAN 0.22 K/mm3 (0.00-0.00); METAMYELOCYTE PERCENT MAN 4 % (0-0); MONOCYTES ABSOLUTE MAN 0.94 K/mm3 (0.16-1.47); MONOCYTES PERCENT MAN 17 % (4-13); NEUTROPHILS ABSOLUTE MAN 3.96 K/mm3 (1.96-9.15); SEG NEUTROPHILS PERCENT MAN 46 % (41-73); TOTAL CELLS COUNTED 100
--- NOTE | 2020-07-17 07:41 | NUR ---
PATIENT KICKS MILL RECORDER WHEN STAFF TALKING TO PATIENT. PER OK FOR RESTRAINTS IF NEEDED. WILL REEVAL.
[2020-07-17] MEDS ORDERED: AMLO10 PO (11:14)
[2020-07-17] MEDS ORDERED: CLON.1 PO (11:15)
[2020-07-17] MEDS ORDERED: HYDCHL25 PO (11:16)
[2020-07-17] MEDS ORDERED: MELATONIN 5 MG1 EACH PO (11:17)
--- NOTE | 2020-07-17 14:30 | NUR ---
REVIEW D'C WITH . PER HE TALKED TO VIA PHONE AND SHE WAS GOOD WITH TAKING HIM HOME. STS SHE IS USED TO DRESSING PATIENT AND HAS A HOSPITAL BED AND W/C FOR PATIENT. REVIEW MEDS WITH , ADVISED HOME HEALTH AND [facility] WILL CALL TO SET UP APPOINTMENT. AND SON IN ROOM. SON DOES NOT ASSIST WITH DRESSING OR GETTING PATIENT IN W/C. SON, AND REGIONAL PRODUCTION MANAGER WHEEL PATIENT OUT TO CAR. WHEN REGIONAL PRODUCTION MANAGER COMES BACK STS AND SON DID NOT HELP TO GET PATIENT INTO CAR. ATTEMPT TO CALL TO SEE IF EVERYTHING OK, LEFT MESSAGE ON ANSWERING MACHINE TO REMIND HER SHE HAD MEDS AT [facility] TO MACHINE SET UP.
== END 2020-07-17 13:34 | disposition home or self-care (01) ==
LOC: ER 08:43 → MEDS 08:44 → ER 15:25 → MEDS 15:34 → ER 15:34 → MEDS 15:34
PROVIDERS: Internal Medicine Gastroenterology; Physician Assistant; ADMIT Internal Medicine
DX: R41.82 Altered mental status, unspecified (principal); R53.1 Weakness; I48.20 Chronic atrial fibrillation, unspecified; R79.1 Abnormal coagulation profile; I11.0 Hypertensive heart disease with heart failure; I50.32 Chronic diastolic (congestive) heart failure; N40.0 Benign prostatic hyperplasia without lower urinary tract symptoms; E78.5 Hyperlipidemia, unspecified; R82.81 Pyuria; E11.40 Type 2 diabetes mellitus with diabetic neuropathy, unspecified; M48.00 Spinal stenosis, site unspecified; Z85.72 Personal history of non-Hodgkin lymphomas; Z85.79 Personal history of other malignant neoplasms of lymphoid, hematopoietic and related tissues; Z79.4 Long term (current) use of insulin; Z79.01 Long term (current) use of anticoagulants; Z79.899 Other long term (current) drug therapy; Z92.21 Personal history of antineoplastic chemotherapy; Z87.820 Personal history of traumatic brain injury; Z23 Encounter for immunization; Z20.828 Contact with and (suspected) exposure to other viral communicable diseases
CPT/HCPCS: 0241U; 36415; 51701; 70450; 71045; 80048; 80053; 80069; 80162; 81001; 82947; 83735; 84443; 85025; 85610; 87040; 87086; 93005; 93010; 96361; 96365; 96366; 96374; 96375; 96376; 97110; 97162; 97166; 97530; 97530-CO; 97535; 97535-CO; 99285-25; A9270; A9270-GY; G0378; G0480; J0696; J1630; J1815; J7030